=== PATIENT | male | born 1935 | race Caucasian/White ===

== ENCOUNTER 2017-02-10 14:11 | Emergency (ER) | payer MEDICARE, OTHER ==
[~2017-02-10] VITALS: Ht 170.2 cm; Wt 79.5 kg
[~2017-02-10 14:11] MED LIST: ASPI-496 PO; CLOP75TA PO; CLOP75TA52 PO; DICL100G4 TP; HYDR-3240 PO; LISI-167 PO; LISI5TAB7 PO; METO25TA35 PO; MULT-516 PO; PANT40TA3 PO; PRAULENT SC; VITA1TAB68 PO; potassium PO
[2017-02-10 15:01] VITALS: BP 146/78
[2017-02-10 15:11] LABS: BASOPHILS # (AUTO) 0.03 x10^3/uL (0-0.1); BASOPHILS % (AUTO) 1 % (0-1); EOSINOPHILS # (AUTO) 0.08 x10^3/uL (0-0.4); EOSINOPHILS % (AUTO) 1 % (1-7); LYMPHOCYTES % (AUTO) 30 % (22-44); MD NO; MEAN CORPUSCULAR HEMOGLOBIN 32.1 pg (27.5-34.5); MEAN CORPUSCULAR HGB CONC 34.3 g/dL (33.2-36.2); MEAN CORPUSCULAR VOLUME 93.8 fL (81-97); MEAN PLATELET VOLUME 7.6 fL (7.4-10.4); MONOCYTES # (AUTO) 0.77 x10^3/uL (0.2-0.8); MONOCYTES % (AUTO) 12 % (2-9); NEUTROPHILS # (AUTO) 3.82 x10^3/uL (1.8-6.8); NEUTROPHILS % (AUTO) 57 % (42-75); PLATELET COUNT 213 x10^3/uL (130-400); RED BLOOD COUNT 4.92 x10^6/uL (4.38-5.82)
[2017-02-10 15:22] LABS: ALBUMIN 3.9 g/dL (3.4-5.0); ANION GAP 5 mmol/L (5-15); CALCIUM 8.5 mg/dL (8.5-10.1); CHLORIDE 109 mmol/L (98-107)
[2017-02-10 15:24] LABS: CREATININE 0.81 mg/dL (0.7-1.3)
== END 2017-02-10 16:34 | disposition home or self-care (01) ==
LOC: ED 16:21
DX: M62.838 Other muscle spasm (principal); B35.3 Tinea pedis; G89.29 Other chronic pain; M79.605 Pain in left leg; I10 Essential (primary) hypertension; K21.9 Gastro-esophageal reflux disease without esophagitis; Z86.73 Personal history of transient ischemic attack (TIA), and cerebral infarction without residual deficits; Z95.0 Presence of cardiac pacemaker; Z90.49 Acquired absence of other specified parts of digestive tract
CPT/HCPCS: 36415; 80048; 82040; 85025; 99284

== ENCOUNTER 2017-04-20 13:09 | Emergency (ER) | payer MEDICARE, OTHER ==
[~2017-04-20] VITALS: Ht 170.2 cm; Wt 79.5 kg
[~2017-04-20 13:09] MED LIST changes: +OMEP-110 PO
[2017-04-20 14:58] LABS: BASOPHILS # (AUTO) 0.03 x10^3/uL (0-0.1); BASOPHILS % (AUTO) 0 % (0-1); EOSINOPHILS # (AUTO) 0.15 x10^3/uL (0-0.4); EOSINOPHILS % (AUTO) 2 % (1-7); LYMPHOCYTES # (AUTO) 2.52 x10^3/uL (1-3.4); LYMPHOCYTES % (AUTO) 26 % (22-44); MD NO; MEAN CORPUSCULAR VOLUME 94.3 fL (81-97); MEAN PLATELET VOLUME 8.1 fL (7.4-10.4); MONOCYTES # (AUTO) 0.81 x10^3/uL (0.2-0.8); MONOCYTES % (AUTO) 8 % (2-9); NEUTROPHILS # (AUTO) 6.25 x10^3/uL (1.8-6.8); NEUTROPHILS % (AUTO) 64 % (42-75); PLATELET COUNT 271 x10^3/uL (130-400); RED BLOOD COUNT 4.96 x10^6/uL (4.38-5.82); RED CELL DISTRIBUTION WIDTH 14.9 % (9.4-14.8)
[2017-04-20 15:10] LABS: ALANINE AMINOTRANSFERASE 20 U/L (12-78); ALBUMIN 3.9 g/dL (3.4-5.0); CALCIUM 8.7 mg/dL (8.5-10.1); CHLORIDE 106 mmol/L (98-107); CREATININE 0.94 mg/dL (0.7-1.3)
[2017-04-20 15:14] LABS: ALKALINE PHOSPHATASE 51 U/L (45-117); BILIRUBIN,TOTAL 0.8 mg/dL (0.2-1.0); TOTAL PROTEIN 7.3 g/dL (6.4-8.2); TROPONIN I < 0.015 ng/mL (0.000-0.045)
[2017-04-20 15:15] LABS: ANION GAP 9 mmol/L (5-15)
[2017-04-20] MEDS ORDERED: SODIUM CHLORIDE FLUSH 10ML SYR IVF ONE (15:30)
[2017-04-20 16:39] VITALS: BP 107/48
== END 2017-04-20 16:41 | disposition home or self-care (01) ==
LOC: ED 16:33
DX: S22.32XA Fracture of one rib, left side, initial encounter for closed fracture (principal); S40.012A Contusion of left shoulder, initial encounter; K21.9 Gastro-esophageal reflux disease without esophagitis; I10 Essential (primary) hypertension; Z86.73 Personal history of transient ischemic attack (TIA), and cerebral infarction without residual deficits; W19.XXXA Unspecified fall, initial encounter; Y93.89 Activity, other specified; Y99.8 Other external cause status; Y92.009 Unspecified place in unspecified non-institutional (private) residence as the place of occurrence of the external cause
CPT/HCPCS: 36415; 70450; 72125; 80053; 84484; 85025; 93005; 99285

== ENCOUNTER → 2017-08-01 | Outpatient (CLI) | payer MEDICARE, OTHER | END | disposition home or self-care (01) | LOC: CFH 12:37 | PROVIDERS: ATTEND Nurse Practitioner Family | DX: G31.89 Other specified degenerative diseases of nervous system (principal); Z86.73 Personal history of transient ischemic attack (TIA), and cerebral infarction without residual deficits | CPT/HCPCS: 70450 ==

== ENCOUNTER 2019-12-14 17:21 | Emergency (ER) | payer MEDICARE, OTHER ==
[~2019-12-14] VITALS: Ht 170.2 cm; Wt 77.9 kg
--- NOTE | 2019-12-14 17:35 | NUR ---
GROSS NEURO INTACT IN TRIAGE, NO DEFICITS
--- NOTE | 2019-12-14 18:15 | NUR ---
SOFTWARE ANALYST: PT TO ROOM VIA POWER WHEELCHAIR FROM [facility]
[2019-12-14] MEDS ORDERED: CLOP75TA52 PO (18:33)
[2019-12-14] MEDS ORDERED: CHOL10003 PO (18:33)
[2019-12-14] MEDS ORDERED: LEVE750T37 PO (18:33)
--- NOTE | 2019-12-14 18:34 | NUR ---
TASK RN: PT TO ROOM FROM [facility] [place] IN OWN MOTORIZED WHEELCHAIR. PT ALERT, AND FOLLOWING COMMANDS. PT TRANSFERED SELF FROM WHEELCHAIR TO [facility] CO DIZZINESS. PT W BASELINE LLE DEFICITS FOLLOWING STROKE. A&OX4, SPEECH CLEAR, FACE SYMMETRICAL AND MOVING ALL EXTREMITIES. PT REPORTS FALLING TODAY AFTER A PARTIAL SEIZURE. HX OF SAME AND ESTABLISHED WITH NEUROLOGIST WHO INCREASED KEPPRA DOSE TO 750MG BID THREE DAYS AGO. 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 DENIES LOC WITH FALL/MIDLINE NECK OR BACK PAIN/ INCONTINENCE OR ORAL TRAUMA. ALSO WITH HX OF SYMPTOMATIC BRADYCARDIA BP/SPO2/ECG MONITORING IN PLACE. SINUS PACED RHYTHM ON MONITOR.
[2019-12-14] MEDS ORDERED: SODIUM CHLORIDE 0.9% 1,000ML IVBOLUS ONE (19:00)
[2019-12-14] MEDS ORDERED: SODIUM CHLORIDE FLUSH 10ML SYR IVF ONE (19:00)
--- NOTE | 2019-12-14 19:13 | NUR ---
BREAK RN: PT TO CT VIA ROSELINE.
[2019-12-14 19:24] LABS: BASOPHILS % (AUTO) 1 % (0-1); EOSINOPHILS % (AUTO) 2 % (1-7); LYMPHOCYTES % (AUTO) 27 % (22-44); MEAN CORPUSCULAR HEMOGLOBIN 32.7 pg (27.5-34.5); MEAN PLATELET VOLUME 8.2 fL (7.4-10.4); MONOCYTES % (AUTO) 12 % (2-9); NEUTROPHILS % (AUTO) 59 % (42-75); PLATELET COUNT 217 x10^3/uL (130-400); RED BLOOD COUNT 4.67 x10^6/uL (4.38-5.82); RED CELL DISTRIBUTION WIDTH 15.1 % (9.4-14.8)
[2019-12-14 19:29] LABS: ALBUMIN 3.7 g/dL (3.4-5.0); ANION GAP 2 mmol/L (5-15); CALCIUM 8.9 mg/dL (8.5-10.1); CHLORIDE 109 mmol/L (98-107); CREATININE 0.88 mg/dL (0.7-1.3); MD NO
[2019-12-14] MEDS ORDERED: DO NOT GIVE XX PRN (20:30)
[2019-12-14] MEDS ORDERED: HEPARIN wt. based STROKE protocol MC PRN (20:30)
[2019-12-14] MEDS ORDERED: SODIUM CHLORIDE 0.9% 1,000 ML IV ONE (20:30)
[2019-12-14] MEDS ORDERED: HEPARIN 25,000 UNITS/250ML PMX 250 ML ONE (20:47)
[2019-12-14 20:58] VITALS: BP 158/86
[2019-12-14] MEDS ORDERED: HEPARIN 25,000 UNITS/250ML PMX 250 ML IV PRN (21:00)
--- NOTE | 2019-12-14 21:04 | NUR ---
THROUGHPUT RN: [facility] CALLED [facility] AND CALL US BACK
--- NOTE | 2019-12-14 22:05 | NUR ---
REPORT CALLED TO KARRIE DIXON AT [facility]
[2019-12-14] MEDS ORDERED: OMNIPAQUE 350 MG/ML, 100ML BOTTLE ONE (23:07)
--- NOTE | 2019-12-14 23:11 | NUR ---
TASK RN: PT TRANSPORTED TO [facility] VIA [facility].
== END 2019-12-14 23:11 | disposition short-term general hospital (02) ==
LOC: ED 17:51
DX: G45.0 Vertebro-basilar artery syndrome (principal); R42 Dizziness and giddiness; R51.9 Headache, unspecified; H53.2 Diplopia; I44.0 Atrioventricular block, first degree; I10 Essential (primary) hypertension; K21.9 Gastro-esophageal reflux disease without esophagitis; I48.91 Unspecified atrial fibrillation; Z95.0 Presence of cardiac pacemaker; Z90.49 Acquired absence of other specified parts of digestive tract; Z86.73 Personal history of transient ischemic attack (TIA), and cerebral infarction without residual deficits
CPT/HCPCS: 36415; 70450; 70496; 70498; 80048; 82040; 85025; 85520; 87635; 93005; 96361; 96365; 96366; 99285; J7030; Q9967

== ENCOUNTER 2020-01-04 13:42 | Emergency (ER) | payer MEDICARE, OTHER ==
[~2020-01-04] VITALS: Ht 170.2 cm; Wt 75.0 kg
[~2020-01-04 13:42] MED LIST changes: +CHOL10003 PO; +LEVE750T37 PO
[2020-01-04 14:25] LABS: BASOPHILS % (AUTO) 1 % (0-1); EOSINOPHILS % (AUTO) 3 % (1-7); LYMPHOCYTES % (AUTO) 30 % (22-44); MEAN CORPUSCULAR HEMOGLOBIN 33.7 pg (27.5-34.5); MEAN PLATELET VOLUME 7.9 fL (7.4-10.4); MONOCYTES % (AUTO) 11 % (2-9); NEUTROPHILS % (AUTO) 56 % (42-75); PLATELET COUNT 337 x10^3/uL (130-400); RED BLOOD COUNT 3.93 x10^6/uL (4.38-5.82); RED CELL DISTRIBUTION WIDTH 16.2 % (9.4-14.8)
[2020-01-04 14:32] LABS: ALBUMIN 3.9 g/dL (3.4-5.0); ANION GAP 4 mmol/L (5-15); CHLORIDE 108 mmol/L (98-107)
[2020-01-04 14:35] LABS: ALANINE AMINOTRANSFERASE 19 U/L (12-78); ALKALINE PHOSPHATASE 62 U/L (45-117); BILIRUBIN,TOTAL 0.9 mg/dL (0.2-1.0); CREATININE 0.89 mg/dL (0.7-1.3); TOTAL PROTEIN 6.9 g/dL (6.4-8.2)
--- NOTE | 2020-01-04 14:42 | NUR ---
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 vss. pearrl 4 mm. urinal at [facility], knows ua is needed. call liang. as
[2020-01-04 14:51] LABS: MD NO
[2020-01-04] MEDS ORDERED: SODIUM CHLORIDE 0.9% 1,000 ML IV ONE (15:30)
[2020-01-04] MEDS ORDERED: SODIUM CHLORIDE 0.9% 1,000ML IVBOLUS ONE (15:30)
[2020-01-04] MEDS ORDERED: SODIUM CHLORIDE FLUSH 10ML SYR IVF ONE (15:30)
[2020-01-04 15:37] LABS: MICROSCOPIC NOT IND
--- NOTE | 2020-01-04 15:40 | NUR ---
pt to [facility]. as
[2020-01-04] MEDS ORDERED: OMNIPAQUE 350 MG/ML, 100ML BOTTLE ONE (15:50)
--- NOTE | 2020-01-04 16:16 | NUR ---
pt back from [facility] awaiting restuls. as
[2020-01-04] MEDS ORDERED: HYDROcodone/APAP 5/325 TABLET ONE (16:53)
[2020-01-04 16:58] VITALS: BP 126/60
--- NOTE | 2020-01-04 16:58 | NUR ---
[place] per mar. benítez in room for update. plan for dc home. pt aware and agrees. as
[2020-01-04] MEDS ORDERED: HYDROcodone/APAP 5/325 TABLET PO ONE (18:00)
== END 2020-01-04 17:16 | disposition home or self-care (01) ==
LOC: ED 16:30
DX: I65.1 Occlusion and stenosis of basilar artery (principal); D64.9 Anemia, unspecified; R53.1 Weakness; R42 Dizziness and giddiness; R07.89 Other chest pain; K21.9 Gastro-esophageal reflux disease without esophagitis; I48.91 Unspecified atrial fibrillation; I10 Essential (primary) hypertension; Z88.9 Allergy status to unspecified drugs, medicaments and biological substances; Z95.0 Presence of cardiac pacemaker; Z90.49 Acquired absence of other specified parts of digestive tract; Z86.73 Personal history of transient ischemic attack (TIA), and cerebral infarction without residual deficits; Z79.899 Other long term (current) drug therapy
CPT/HCPCS: 36415; 70496; 71045; 80053; 81003; 85025; 93005; 99285; J7030; Q9967